=== PATIENT | female | born 1990 | race African-American/Black ===

== ENCOUNTER 2017-03-08 11:59 | Emergency (ER) | payer OTHER ==
[~2017-03-08] VITALS: Ht 165.1 cm; Wt 61.7 kg
[~2017-03-08 11:59] MED LIST: BACTRIM DS TAB1 EAC1 ORAL; COLACE100 MG ORAL; KEFLEX500 MG ORAL; NORCO 5-325 TA1 EACH ORAL
--- NOTE | 2017-03-08 12:23 | Emergency Room Report ---
History of Present Illness General Chief Complaint: Upper Respiratory Illness Source: Patient Present Illness HPI 26-year-old female presents to the emergency department complaining of nonproductive cough, nasal congestion, rhinorrhea, sore throat that is 5/10 in severity x2 days. Patient reports subjective mild fevers and chills. She states she is up-to-date with vaccinations. 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 Denies CP, Palpitations, LOC , AMS, dizziness, Changes in Vision, Sensation, paresthesias, or a sudden severe headache. Denies neck pain, neck stiffness or photophobia. Allergies: Coded Allergies: No Known Allergies (Unverified , 07/06/14) Patient History Past Medical History: see triage record Past Surgical History: none Pertinent Family History: none Now: No Reviewed Nursing Documentation: PMH: Agreed, PSxH: Agreed Nursing Documentation-PMH Past Medical History: No Stated History Review of Systems All Other Systems: negative except mentioned in HPI Physical Exam Vital Signs Date Time Temp Pulse Resp B/P (MAP) Pulse Ox O2 Delivery O2 Flow Rate FiO2 03/08/17 12:10 97.9 62 16 102/60 99 Room Air Sp02 EP Interpretation: reviewed, normal General Appearance: no apparent distress, alert, GCS 15, non-toxic Head: normocephalic, atraumatic ENT: hearing grossly normal, normal pharynx - some evidence of post nasal drainage ( PND), normal voice Neck: full range of motion, no meningismus, no bony tend Respiratory: lungs clear, normal breath sounds, no respiratory distress, no wheezing, speaking full sentences Cardiovascular #1: regular rate, rhythm Gastrointestinal: non tender, soft Genitourinary: normal inspection, no CVA tenderness Musculoskeletal: back normal, gait/station normal, normal range of motion, non- tender Neurologic: alert, oriented x3, responsive, motor strength/tone normal, sensory intact, normal gait, speech normal Psychiatric: mood/affect normal Skin: normal color, no rash, warm/dry, well hydrated Medical Decision Making PA Attestation Dr. Hernandez is my supervising Physician whom patient management has been discussed with. Diagnostic Impression: Primary Impression: Upper respiratory infection Qualified Codes: J06.9 - Acute upper respiratory infection, unspecified; B97.89 - Other viral agents as the cause of diseases classified elsewhere ER Course 26-year-old female presents to the emergency department complaining of nonproductive cough, nasal congestion, rhinorrhea, sore throat that is 5/10 in severity x2 days. Patient reports subjective mild fevers and chills. She states she is up-to-date with vaccinations. 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 Denies CP, Palpitations, LOC , AMS, dizziness, Changes in Vision, Sensation, paresthesias, or a sudden severe headache. Denies neck pain, neck stiffness or photophobia. Ddx considered but are not limited to URI, pneumonia, PE, strep pharyngitis, meningitis. Vital signs: Pt. is afebrile, the remaining VS are WNL H&PE are most consistent with URI- no meningeal signs, PND noted, no evidence of bacterial infection at this time. ORDERS: none required at this time, the diagnosis is clinical ED INTERVENTIONS: None required at this time. -Discussed the patient prior hand hygiene, covering her cough for wearing a mask. DISCHARGE: At this time pt. is stable for d/c to home. Will provide printed patient care instructions, and any necessary prescriptions. Care plan and follow up instructions have been discussed with the patient prior to discharge. Last Vital Signs Date Time Temp Pulse Resp B/P (MAP) Pulse Ox O2 Delivery O2 Flow Rate FiO2 03/08/17 12:10 97.9 62 16 102/60 99 Room Air Disposition: HOME, SELF-CARE Condition: Stable Scripts Pseudoephedrine Hcl* (NEXAFED*) 30 Mg Tablet 30 MG ORAL Q6H Y for congestion, #20 TAB Prov: Micaela Copeland P.A. 03/08/17 Acetaminophen* (TYLENOL EXTRA STRENGTH*) 500 Mg Tablet 500 MG ORAL Q6H Y for Mild Pain/Temp > 100.5, #20 TAB 0 Refills Prov: Micaela Copeland P.A. 03/08/17 Codeine/Promethazine Hcl* (PROMETHAZINE-CODEINE SYRUP*) 118 Ml Syrup 5 ML ORAL Q6H Y for For Cough, #120 ML 0 Refills Prov: CopelandMicaela govea 03/08/17 Patient Instructions: Upper Respiratory Infection, Adult Additional Instructions: Take medications as directed. Follow up with a Primary Care Provider in 3-5 days, even if your symptoms have resolved. --Please review list of primary care clinics, if you do not already have a primary care provider Return sooner to ED if new symptoms occur, or current symptoms become worse. Do not drink alcohol, drive, or operate heavy machinery while taking Cough Syrup as this may cause drowsiness. - Please note that this Emergency Department Report was dictated using [employer] inform[employer] analyst technology software, occasionally this can lead to erroneous entry secondary to interpretation by the dictation equipment. Micaela Copeland Mar 08, 2017 12:23
[2017-03-08] MEDS ORDERED: TYLENOL EXTRA500 MG ORAL (12:25)
[2017-03-08] MEDS ORDERED: PROMETHAZINE-C118 M1 ORAL (12:25)
[2017-03-08] MEDS ORDERED: NEXAFED30 MG ORAL (12:25)
[2017-03-08 12:30] VITALS: BP 127/86
== END 2017-03-08 12:36 | disposition home or self-care (01) ==
LOC: EMR 12:22
DX: J06.9 Acute upper respiratory infection, unspecified (principal)
CPT/HCPCS: 99283; 99284